=== PATIENT | female | born 1960 | race Caucasian/White ===

== ENCOUNTER 2021-09-09 14:28 | Outpatient (CLI) | payer BC, SELFPAY ==
--- NOTE | 2021-09-09 14:40 | CRLHL7_ITS ---
For Patients: As a result of the Cures Act, medical imaging exams and procedure reports are released immediately into your electronic medical record. You may view this report before your referring provider. If you have questions, please contact your health care provider. BILATERAL MAMMOGRAM WITH COMPUTER-AIDED DETECTION AND TOMOSYNTHESIS TECHNIQUE: CC and MLO views were obtained. These mammographic images have been obtained using full-field digital technique. These mammographic images were interpreted with the benefit of computer-aided detection. Breast Tomosynthesis was used in this interpretation. COMPARISON FILM: 06/06/2020, 04/11/2019, 11/18/2017. FINDINGS: The breasts are heterogeneously dense, which may obscure small masses IMPRESSION: There is no radiographic evidence for malignancy. ASSESSMENT: BI-RADS Category 1: Negative RECOMMENDATION: Routine screening mammogram in 1 year. A lay language report of this examination will be provided to the patient. Ismael Diaz M.D. Diagnostic Radiologist [email or web address] RAVI/[email or web address] / be/Dictated by: Ismael Diaz MD @ 09/10/2021 9:31:00 AM (Electronically Signed)
--- NOTE | 2021-09-09 15:00 | TELERAD_ITS ---
Final Report Patient: FAIZA REYNOSO Facility:?[facility] Patient ID:?[id number] :?[id number] Study:?DEXA Spine DEXA - Spine/Hips-09/09/2021 3:50:45 PM Ordering Physician:PAULO Final Report: DXA BONE MINERAL DENSITY STUDY Current height (in): 64. Weight (lb): 162. Menopause age: 50. Ethnicity: White. 1. Have you had a previous hip or vertebral fracture? No. 2. Have you had any fractures during your adult life which did not result from significant trauma (e.g., auto accident)? Yes. 3. Did either of your parents have a hip fracture? Yes. 4. Do you smoke? No. 5. Have you ever taken Glucocorticoids? No. 6. Do you have rheumatoid arthritis? No. 7. Do you have secondary osteoporosis? No. 8. Do you drink 3 or more alcoholic drinks per day? No. 9. Are you being treated for osteoporosis? No. 10. Have you ever taken any of the following medications: Actonel, Evista, Fosamax, Miacalcin, Reclast, Boniva, Forteo, HRT (i.e. estrogen/hormone therapy), Protelos, Prolia, Vitamin D, Calcium, other ? please specify. ANSWER: No. 11. Do you have any of the following medical conditions: Anorexia or bulimia, asthma or emphysema, end stage renal disease, hyperparathyroidism, any seizure disorders, cancer, inflammatory bowel diseases, hysterectomy, other ? please specify. ANSWER: Yes, cancer. 12. What was your maximum height (inches)? 65. 13. Do you perform weight bearing exercise regularly? No. 14. Do you regularly consume dairy products? Yes. 15. Do you drink caffeinated beverages? Yes. 16. At what age did your period start? 14. 17. Are you premenopausal? No. 18. How many full term pregnancies have you had? 0. 19. Have you ever missed your period for more than 6 months in a row (not including or menopause)? No. TECHNIQUE: Bone mineral density study was performed using the [employer]. FINDINGS: The results of the study expressed as bone mineral density (BMD) are as follows: Lumbar spine L1 to L4: BMD: 0.767 g/cm2. T-score: -2.5. Z-score: -1.0. Neck Left: BMD: 0.606 g/cm2. T-score: -2.2. Z-score: -0.8. Right: BMD: 0.557 g/cm2. T-score: -2.6. Z-score: -1.3. Total Left: BMD: 0.788 g/cm2. T-score: -1.3. Z-score: -0.2. Right: BMD: 0.762 g/cm2. T-score: -1.5. Z-score: -0.4. IMPRESSION: Osteoporosis. Ismael Diaz M.D. Diagnostic Radiologist [email or web address] RAVI/minnie D& Transcribed: 6:35 p.m. MARGARITA/Dictated by: Ismael Diaz MD @ 09/10/2021 12:54:00 PM (Electronic Signature)
== END 2021-09-09 14:29 | disposition home or self-care (01) ==
LOC: MAMMO 14:29
PROVIDERS: Visit Provider Emergency Medicine
DX: Z12.31 Encounter for screening mammogram for malignant neoplasm of breast (principal); R92.2 Inconclusive mammogram; Z13.820 Encounter for screening for osteoporosis; M81.0 Age-related osteoporosis without current pathological fracture
CPT/HCPCS: 77063; 77067; 77080

== ENCOUNTER 2021-10-29 09:55 | Outpatient (CLI) | payer BC, SELFPAY ==
[2021-10-29 14:24] LABS: Albumin* 4.4 g/dL (3.3-5.0); Chloride* 101 mmol/L (96-114); Sodium* 140 mmol/L (135-149); Vitamin D 25 Hydroxy* 22 ng/mL (30-80)
[2021-10-29 14:25] LABS: Potassium* 3.6 mmol/L (3.6-5.1)
[2021-10-29 14:26] LABS: Creatinine* 0.7 mg/dL (0.5-1.5); Estimated Glomerular Filt Rate 98 ml/min
[2021-10-29 14:27] LABS: Alanine Aminotransferase* 19 U/L (4-35); Alkaline Phosphatase* 97 U/L (40-150); Aspartate Amino Transferase* 28 U/L (12-35); Bilirubin Direct* 0.2 mg/dL (0.0-0.5); Bilirubin Total* 0.6 mg/dL (0.1-1.5); Blood Urea Nitrogen* 15 mg/dL (7-30); Carbon Dioxide* 29 mmol/L (20-32); Glucose* 94 mg/dL (60-115); Total Protein* 7.2 g/dL (6.0-8.3)
[2021-10-29 14:28] LABS: Calcium* 9.3 mg/dL (8.4-10.6)
== END 2021-10-29 09:56 | disposition home or self-care (01) ==
PROVIDERS: PCP Emergency Medicine; Visit Provider Emergency Medicine
DX: M81.0 Age-related osteoporosis without current pathological fracture (principal); N63.20 Unspecified lump in the left breast, unspecified quadrant
CPT/HCPCS: 80048; 80076; 82306; 84443

== ENCOUNTER 2021-11-09 09:14 | Outpatient (CLI) | payer BC, SELFPAY ==
--- NOTE | 2021-11-09 09:45 | CRLHL7_ITS ---
For Patients: As a result of the Cures Act, medical imaging exams and procedure reports are released immediately into your electronic medical record. You may view this report before your referring provider. If you have questions, please contact your health care provider. DIGITAL DIAGNOSTIC LEFT MAMMOGRAM USING TOMOSYNTHESIS AND COMPUTER-AIDED DETECTION LEFT BREAST ULTRASOUND CLINICAL HISTORY: LEFT breast lump. COMPARISON: 09/09/2021, 04/11/2019, 11/18/2017, 08/26/2016. TECHNIQUE: Digital LEFT mammogram in two projections. Tomosynthesis and CAD utilized. Real-time ultrasound imaging of LEFT breast with imaging documentation. Scanning was performed by both the technologist and the radiologist. BREAST COMPOSITION: There are areas of scattered fibroglandular density. FINDINGS: 3D CC and 3D MLO LEFT breast mammogram submitted. No suspicious masses or architectural distortion. No adenopathy or suspicious calcifications. Targeted LEFT breast ultrasound performed in the area of concern 8 o`clock 6 cm from the nipple. Normal fat lobules are present. No suspicious findings. No fibrocystic change. IMPRESSION: Normal 3D mammograms LEFT breast and targeted LEFT breast ultrasound. No evidence of malignancy. RECOMMENDATIONS: Routine screening mammography. Results and recommendations discussed with the patient. BI-RADS Category 2: Benign A lay language report of this examination will be provided to the patient. Dictated by Ismael Diaz MD @ 11/09/2021 10:29:14 AM /Dictated by: Ismael Diaz MD @ 11/09/2021 10:29:00 AM (Electronically Signed)
--- NOTE | 2021-11-09 10:15 | CRLHL7_ITS ---
For Patients: As a result of the Cures Act, medical imaging exams and procedure reports are released immediately into your electronic medical record. You may view this report before your referring provider. If you have questions, please contact your health care provider. PLEASE SEE DIGITAL DIAGNOSTIC LEFT MAMMOGRAM PERFORMED SAME DAY CRL:kenny cox/Dictated by: Ismael Diaz MD @ 11/09/2021 10:29:00 AM (Electronically Signed)
== END 2021-11-09 09:15 | disposition home or self-care (01) ==
PROVIDERS: PCP Emergency Medicine; Visit Provider Emergency Medicine
DX: N63.20 Unspecified lump in the left breast, unspecified quadrant (principal)
CPT/HCPCS: 76642; 77065; G0279

== ENCOUNTER 2021-12-28 18:24 | Outpatient (CLI) | payer BC, SELFPAY ==
[2021-12-28 14:07] LABS: Vitamin D 25 Hydroxy* 23 ng/mL (30-80)
== END 2021-12-28 18:25 | disposition home or self-care (01) ==
PROVIDERS: PCP Emergency Medicine; Visit Provider Emergency Medicine
DX: E55.9 Vitamin D deficiency, unspecified (principal)
CPT/HCPCS: 82306

== ENCOUNTER 2022-02-17 08:36 | Outpatient (CLI) | payer BC, SELFPAY ==
[2022-02-17 14:25] LABS: Vitamin D 25 Hydroxy* 27 ng/mL (30-80)
[2022-02-17 16:26] LABS: Cholesterol* 198 mg/dL (90-199); HDL Cholesterol* 68 mg/dL (>=50); LDL Cholesterol Calculated 98 mg/dL (<100); Triglycerides* 158 mg/dL (40-149)
== END 2022-02-17 08:37 | disposition home or self-care (01) ==
LOC: LKVREF 08:38
PROVIDERS: PCP Emergency Medicine; Visit Provider Emergency Medicine
DX: M81.0 Age-related osteoporosis without current pathological fracture (principal); Z01.419 Encounter for gynecological examination (general) (routine) without abnormal findings; E55.9 Vitamin D deficiency, unspecified; E78.5 Hyperlipidemia, unspecified
CPT/HCPCS: 80061; 82306

== ENCOUNTER 2022-12-10 13:26 | Outpatient (CLI) | payer BC, SELFPAY ==
--- NOTE | 2022-12-10 14:00 | CRLHL7_ITS ---
For Patients: As a result of the Cures Act, medical imaging exams and procedure reports are released immediately into your electronic medical record. You may view this report before your referring provider. If you have questions, please contact your health care provider. BILATERAL SCREENING MAMMOGRAM WITH COMPUTER-AIDED DETECTION AND TOMOSYNTHESIS TECHNIQUE: CC and MLO views were obtained. These mammographic images have been obtained using full-field digital technique. These mammographic images were interpreted with the benefit of computer-aided detection. Breast Tomosynthesis was used in this interpretation. COMPARISON FILM: 09/09/21, 06/06/20, 04/11/19. FINDINGS: The breasts are heterogeneously dense, which may obscure small masses IMPRESSION: There is no radiographic evidence for malignancy. ASSESSMENT: BI-RADS Category 1: Negative RECOMMENDATION: Routine screening mammogram in 1 year. A lay language report of this examination will be provided to the patient. Ismael Diaz M.D. Diagnostic Radiologist [email or web address] RAVI/kenny Transcribed: 7:28 p.tj cox/Dictated by: Ismael Diaz MD @ 12/13/2022 12:28:00 PM (Electronically Signed)
== END 2022-12-10 13:27 | disposition home or self-care (01) ==
LOC: MAMMO 13:28
PROVIDERS: PCP Emergency Medicine; Visit Provider Emergency Medicine
DX: Z12.31 Encounter for screening mammogram for malignant neoplasm of breast (principal); R92.2 Inconclusive mammogram
CPT/HCPCS: 77063; 77067

== ENCOUNTER 2022-12-23 08:53 | Outpatient (CLI) | payer BC, SELFPAY | END 2022-12-23 08:54 | disposition home or self-care (01) | PROVIDERS: PCP Emergency Medicine; Visit Provider Emergency Medicine | DX: Z00.00 Encounter for general adult medical examination without abnormal findings (principal); E55.9 Vitamin D deficiency, unspecified; I10 Essential (primary) hypertension; E78.5 Hyperlipidemia, unspecified; M81.0 Age-related osteoporosis without current pathological fracture | CPT/HCPCS: 80053; 80061; 82306 ==

== ENCOUNTER 2023-02-02 14:30 | Outpatient (CLI) | payer BC, SELFPAY ==
--- NOTE | 2023-02-02 15:00 | CRLHL7_ITS ---
For Patients: As a result of the Century Cures Act, medical imaging exams and procedure reports are released immediately into your electronic medical record. You may view this report before your referring provider. If you have questions, please contact your health care provider. DXA BONE MINERAL DENSITY STUDY Current height (in): 64.0. Weight (lb): 162.0. Menopause age: 50. Ethnicity: White. Reason for exam: Osteoporosis. 1. Have you had a previous hip or vertebral fracture? No. 2. Have you had any fractures during your adult life which did not result from significant trauma (e.g., auto accident)? Yes. 3. Did either of your parents have a hip fracture? Yes. 4. Do you smoke? No. 5. Have you ever taken Glucocorticoids? No. 6. Do you have rheumatoid arthritis? No. 7. Do you have secondary osteoporosis? No. 8. Do you drink 3 or more alcoholic drinks per day? No. 9. Are you being treated for osteoporosis? No. 10. Have you ever taken any of the following medications: Actonel, Evista, Fosamax, Miacalcin, Reclast, Boniva, Forteo, HRT (i.e. estrogen/hormone therapy), Protelos, Prolia, Vitamin D, Calcium, other ??? please specify. ANSWER: Yes, vitamin D. 11. Do you have any of the following medical conditions: Anorexia or bulimia, asthma or emphysema, end stage renal disease, hyperparathyroidism, any seizure disorders, cancer, inflammatory bowel diseases, hysterectomy, other ??? please specify. ANSWER: Yes, cancer. 12. What was your maximum height (inches)? 65. 13. Do you perform weight bearing exercise regularly? Yes. 14. Do you regularly consume dairy products? Yes. 15. Do you drink caffeinated beverages? Yes. 16. At what age did your period start? 16. 17. Are you premenopausal? No. 18. How many full term pregnancies have you had? 0. 19. Have you ever missed your period for more than 6 months in a row (not including or menopause)? No. TECHNIQUE: Bone mineral density study was performed using the [employer]. FINDINGS: The results of the study expressed as bone mineral density (BMD) are as follows: Lumbar spine L1 to L4: BMD: 0.761 g/cm2. T-score: -2.6. Z-score: -1.0. Neck Left: BMD: 0.604 g/cm2. T-score: -2.2. Z-score: -0.8 Right: BMD: 0.555 g/cm2. T-score: -2.7. Z-score: -1.2 Total Left: BMD: 0.765 g/cm2. T-score: -1.4. Z-score: -0.3 Right: BMD: 0.739 g/cm2. T-score: -1.7. Z-score: -0.6 IMPRESSION: Osteoporosis. *Comparison exams done prior to 07/2019 were performed on different unit, [facility] [employer]. COMPARISON: Compared with scan of 09/09/2021, the bone mineral density has decreased by 0.7 percent at the spine and decreased by 3.0 percent at the hip. Ismael Diaz M.D. Diagnostic Radiologist [email or web address] Transcribed: 11:41 am DW/Dictated by: Ismael Diaz MD @ 02/03/2023 9:15:00 AM (Electronically Signed)
== END 2023-02-02 14:31 | disposition home or self-care (01) ==
LOC: RAD 14:30
PROVIDERS: PCP Emergency Medicine; Visit Provider Emergency Medicine
DX: M81.0 Age-related osteoporosis without current pathological fracture (principal)
CPT/HCPCS: 77080

== ENCOUNTER 2023-08-19 09:37 | Outpatient (CLI) | payer BC, SELFPAY | END 2023-08-19 09:38 | disposition home or self-care (01) | LOC: NFLDREF 08-21 03:16 | PROVIDERS: PCP Emergency Medicine; Referring Provider Emergency Medicine; Visit Provider Nurse Practitioner | DX: R30.0 Dysuria (principal); R10.2 Pelvic and perineal pain; N30.01 Acute cystitis with hematuria | CPT/HCPCS: 87086 ==

== ENCOUNTER 2023-09-29 14:41 | Outpatient (CLI) | payer BC, SELFPAY | END 2023-09-29 14:42 | disposition home or self-care (01) | PROVIDERS: PCP Emergency Medicine; Visit Provider Emergency Medicine | DX: R31.29 Other microscopic hematuria (principal); R10.2 Pelvic and perineal pain | CPT/HCPCS: 80048; 86140; 87086 ==

== ENCOUNTER 2023-10-07 13:23 | Outpatient (CLI) | payer BC, SELFPAY ==
--- NOTE | 2023-10-07 14:00 | CRLHL7_ITS ---
For Patients: As a result of the Century Cures Act, medical imaging exams and procedure reports are released immediately into your electronic medical record. You may view this report before your referring provider. If you have questions, please contact your health care provider. Indication: PELVIC PERINEAL PAIN FOR A MONTH, BLOOD IN URINE R/O STONES Technique: Routine noncontrast CT abdomen and pelvis Please note that all CT scans at this facility use dose modulation, iterative reconstruction, and/or weight-based dosing when appropriate to reduce radiation dose to as low as reasonably achievable. Comparison: None Findings: Lung bases are clear. No pleural effusion.2 there is a simple cyst in the periphery of the liver measuring 1.5 cm. The spleen is not enlarged. Adrenal glands are normal. Normal kidneys. Pancreas is normal. A tiny hiatal hernia is noted. Mild vascular calcifications are present. No bladder stone. Pelvic phleboliths are present. No ureteral stone. Moderately severe inflammatory changes present about the mid sigmoid colon involving a 7 centimeter segment of sigmoid colon. Surrounding inflammatory stranding noted with subcentimeter lymph nodes. Numerous diverticula are present. No disseminated free air or abscess. No bowel obstruction no vertebral body compression fracture. Impression: Moderately severe acute sigmoid diverticulitis without abscess or disseminated free air. No urinary tract calculi. Please note that all CT scans at this facility use dose modulation, iterative reconstruction, and/or weight-based dosing when appropriate to reduce radiation dose to as low as reasonably achievable. Dictated by Ismael Diaz MD @ 10/07/2023 3:46:17 PM (Electronically Signed)
== END 2023-10-07 13:24 | disposition home or self-care (01) ==
LOC: CT 13:23
PROVIDERS: PCP Emergency Medicine; Visit Provider Emergency Medicine
DX: R10.2 Pelvic and perineal pain (principal); K57.32 Diverticulitis of large intestine without perforation or abscess without bleeding; R31.29 Other microscopic hematuria
CPT/HCPCS: 74176

== ENCOUNTER 2023-10-20 09:29 | Outpatient (CLI) | payer BC, SELFPAY | END 2023-10-20 09:30 | disposition home or self-care (01) | LOC: NFLDREF 10-22 14:47 | PROVIDERS: PCP Emergency Medicine; Referring Provider Emergency Medicine; Visit Provider Emergency Medicine | DX: R31.29 Other microscopic hematuria (principal) | CPT/HCPCS: 87086 ==

== ENCOUNTER 2023-12-14 09:32 | Outpatient (CLI) | payer BC, SELFPAY | END 2023-12-14 09:33 | disposition home or self-care (01) | LOC: LKVREF 09:33 | PROVIDERS: PCP Emergency Medicine; Visit Provider Emergency Medicine | DX: K57.30 Diverticulosis of large intestine without perforation or abscess without bleeding (principal) | CPT/HCPCS: 86140 ==

== ENCOUNTER 2024-01-06 13:20 | Outpatient (CLI) | payer BC, SELFPAY | END 2024-01-06 13:21 | disposition home or self-care (01) | LOC: NFLDREF 01-10 18:10 | PROVIDERS: PCP Emergency Medicine; Referring Provider Emergency Medicine; Visit Provider Emergency Medicine | DX: K57.92 Diverticulitis of intestine, part unspecified, without perforation or abscess without bleeding (principal) | CPT/HCPCS: 82565 ==

== ENCOUNTER 2024-01-27 12:00 | Outpatient (CLI) | payer BC, SELFPAY ==
--- NOTE | 2024-01-27 13:00 | CRLHL7_ITS ---
For Patients: As a result of the Cures Act, medical imaging exams and procedure reports are released immediately into your electronic medical record. You may view this report before your referring provider. If you have questions, please contact your health care provider. INDICATION: Diverticulosis since August. TECHNIQUE: CT abdomen and pelvis acquired with IV contrast. Isovue 370, 85 mL. Water prep. COMPARISON: CT abdomen and pelvis October 07, 2023 FINDINGS: Lower chest: Unremarkable. Liver: Stable right subcapsular hepatic cyst Spleen: Unremarkable. Pancreas: Unremarkable. Gallbladder and bile ducts: Unremarkable. Kidneys: Unremarkable. Adrenal glands: Unremarkable. GI tract: Moderately advanced diverticular changes again noted throughout the sigmoid colon. The inflammatory stranding in the pericolonic sigmoid mesentery has significantly decreased with mild residual findings. No extraluminal air or fluid. No adjacent abscess, fluid collections or free air. No bowel dilation. No new bowel findings. Appendix not visualized. Normal small bowel and stomach. Vascular structures: Negative. No sign of aneurysm. Lymph nodes: Unremarkable. Miscellaneous: Unremarkable. No free air or significant free fluid. Pelvic Organs: Unremarkable. Bones: Unremarkable for age. IMPRESSION: Residual moderately advanced diverticular changes throughout the sigmoid colon with improvement in inflammatory stranding in the pericolonic sigmoid mesentery which may be due to residual scarring versus r recurrent inflammation. No new findings. Please note that all CT scans at this facility use dose modulation, iterative reconstruction, and/or weight-based dosing when appropriate to reduce radiation dose to as low as reasonably achievable. Dictated by Joaquim Aly MD @ 01/27/2024 1:46:37 PM (Electronically Signed)
--- NOTE | 2024-01-27 13:40 | CRLHL7_ITS ---
For Patients: As a result of the Century Cures Act, medical imaging exams and procedure reports are released immediately into your electronic medical record. You may view this report before your referring provider. If you have questions, please contact your health care provider. BILATERAL SCREENING MAMMOGRAM WITH COMPUTER-AIDED DETECTION AND TOMOSYNTHESIS TECHNIQUE: CC and MLO views were obtained. These mammographic images have been obtained using full-field digital technique. These mammographic images were interpreted with the benefit of computer-aided detection. Breast Tomosynthesis was used in this interpretation. COMPARISON FILM: 12/10/22, 09/09/21, 06/06/20. FINDINGS: The breasts are heterogeneously dense, which may obscure small masses. IMPRESSION: There is no radiographic evidence for malignancy. ASSESSMENT: BI-RADS Category 1: Negative RECOMMENDATION: Routine screening mammogram in 1 year. A lay language report of this examination will be provided to the patient. Ismael Diaz M.D. Diagnostic Radiologist [email or web address] RAVI/kenny Transcribed: 3:41 p.tj cox/Dictated by: Ismael Diaz MD @ 01/31/2024 10:42:00 AM (Electronically Signed)
== END 2024-01-27 12:01 | disposition home or self-care (01) ==
LOC: CT 12:04
PROVIDERS: PCP Emergency Medicine; Visit Provider Internal Medicine
DX: K57.30 Diverticulosis of large intestine without perforation or abscess without bleeding (principal); K56.699 Other intestinal obstruction unspecified as to partial versus complete obstruction; Z12.31 Encounter for screening mammogram for malignant neoplasm of breast; R92.333 Mammographic heterogeneous density, bilateral breasts
CPT/HCPCS: 74177; 77063; 77067; Q9967

== ENCOUNTER 2024-02-23 08:36 | Outpatient (CLI) | payer BC, SELFPAY | END 2024-02-23 08:37 | disposition home or self-care (01) | PROVIDERS: PCP Emergency Medicine; Visit Provider Emergency Medicine | DX: E78.2 Mixed hyperlipidemia (principal); I10 Essential (primary) hypertension; M81.0 Age-related osteoporosis without current pathological fracture | CPT/HCPCS: 80048; 80061; 82306 ==

== ENCOUNTER 2024-05-23 08:21 | Outpatient (CLI) | payer BC, SELFPAY | END 2024-05-23 08:22 | disposition home or self-care (01) | LOC: LKVREF 08:22 | PROVIDERS: PCP Emergency Medicine; Visit Provider Emergency Medicine | DX: I10 Essential (primary) hypertension (principal) | CPT/HCPCS: 80048 ==